=== PATIENT | male | born 1960 | race Caucasian/White ===

== ENCOUNTER 2017-12-25 00:03 | Emergency (ER) | payer BC ==
[~2017-12-25] VITALS: Ht 172.7 cm; Wt 72.1 kg
--- NOTE | 2017-12-25 00:22 | NUR ---
MSE DONE BY DR LAWS AT BEDSIDE ROOM 05A. PATIENT A & O X4.
[2017-12-25] MEDS ORDERED: FLUORESCEIN SODIUM 1 MG STRIP ONE (00:25)
[2017-12-25] MEDS ORDERED: TETRACAINE HCL 0.5% OPHT DROP 2 ML BOTTLE ONE (00:25)
[2017-12-25] MEDS ORDERED: TDAP DIPH,PERTUSS,TET VAC/PF 0.5 ML DISP.SYRIN IM ONE ×2 (00:45→00:52)
[2017-12-25] MEDS ORDERED: FLUORESCEIN SODIUM 1 MG STRIP OP ONE (00:45)
[2017-12-25] MEDS ORDERED: CIPROFLOXACIN 0.3% OPHT DROP 2.5 ML BOTTLE ONE (00:45)
[2017-12-25] MEDS ORDERED: TETRACAINE HCL 0.5% OPHT DROP 2 ML BOTTLE OP ONE (00:45)
[2017-12-25] MEDS ORDERED: MISCELLANEOUS MED XX ONE (00:45)
--- NOTE | 2017-12-25 01:05 | NUR ---
Patient discharged to home in stable conditon. Written and verbal after care instructions given. Patient verbalizes understanding of instructions.
[2017-12-25 01:06] VITALS: BP 106/71
== END 2017-12-25 01:07 | disposition home or self-care (01) ==
LOC: ER 00:07
DX: S05.02XA Injury of conjunctiva and corneal abrasion without foreign body, left eye, initial encounter (principal); X58.XXXA Exposure to other specified factors, initial encounter; Y93.89 Activity, other specified; Y92.89 Other specified places as the place of occurrence of the external cause; Y99.8 Other external cause status
CPT/HCPCS: 90471; 90715; 99283; A4663